=== PATIENT | female | born 1970 | race Caucasian/White ===

== ENCOUNTER 2018-04-08 08:02 | Emergency (ER) | payer BC ==
[~2018-04-08] VITALS: Ht 162.6 cm; Wt 104.3 kg
[2018-04-08] MEDS ORDERED: LEVOTHYROXINE100 MC1 PO (08:25)
[2018-04-08] MEDS ORDERED: HYDROCODONE-AP1 EAC6 PO (09:46)
[2018-04-08] MEDS ORDERED: KEFLEX500 M1 PO (09:46)
[2018-04-08 10:42] VITALS: BP 144/89
== END 2018-04-08 10:42 | disposition home or self-care (01) ==
LOC: M.ERS 08:02
DX: S92.405A Nondisplaced unspecified fracture of left great toe, initial encounter for closed fracture (principal); S91.112A Laceration without foreign body of left great toe without damage to nail, initial encounter; W11.XXXA Fall on and from ladder, initial encounter; Y93.89 Activity, other specified; Y92.89 Other specified places as the place of occurrence of the external cause; Y99.8 Other external cause status; E03.9 Hypothyroidism, unspecified